=== PATIENT | male | born 1940 | race Two or more races ===

== ENCOUNTER 2021-01-14 09:26 | Emergency (ER) | payer OTHER ==
[~2021-01-14] VITALS: Ht 175.3 cm; Wt 58.5 kg
[~2021-01-14 09:26] MED LIST: AVODART0.5 MG; DIGOXIN125 MCG; ECOTRIN81 MG; MONOPRIL20 MG; NORVASC5 MG; RANEXA500 MG; VYTORIN 10/20 T1 TAB
[2021-01-14] MEDS ORDERED: PLAVIX75 MG PO (09:49)
[2021-01-14] MEDS ORDERED: CARVEDILOL25 MG (09:49)
[2021-01-14] MEDS ORDERED: ISOSORBIDE MONO60 MG PO (09:50)
[2021-01-14] MEDS ORDERED: LANTUS SOL100 UNIT/1 SQ (09:50)
[2021-01-14] MEDS ORDERED: VASOTEC20 M1 PO (09:50)
[2021-01-14] MEDS ORDERED: LIPITOR80 MG PO (09:50)
[2021-01-14] MEDS ORDERED: NOVOLOG100 UNIT/1 (09:51)
== END 2021-01-14 19:32 | disposition home or self-care (01) ==
LOC: ER 09:26
DX: R10.31 Right lower quadrant pain (principal); J90 Pleural effusion, not elsewhere classified; I11.9 Hypertensive heart disease without heart failure; K59.09 Other constipation; N13.39 Other hydronephrosis